=== PATIENT | male | born 1990 | race African-American/Black ===

== ENCOUNTER 2017-10-06 07:36 | Emergency (ER) | payer OTHER ==
[2017-10-06 08:49] LABS: BASO % 0.2 % (0.0-1.0); EOS # 0.1 10^3/uL (0.0-0.50); EOS % 2.5 % (0.0-3.0); HEMATOCRIT 45.3 % (42.0-52.0); HEMOGLOBIN 15.5 g/dl (14.0-18.0); IMMATURE GRANULOCYTE % 0.2 % (0-0); LYMPH # 0.7 10^3/uL (1.5-6.5); LYMPH % 11.7 % (24.0-44.0); MEAN CORPUSCULAR HEMOGLOBIN 29.8 pg (27.0-33.0); MEAN CORPUSCULAR HGB CONC 34.2 g/dl (32.0-36.5); MEAN CORPUSCULAR VOLUME 86.9 fl (80.0-96.0); MONO # 0.4 10^3/uL (0.0-0.8); MONO % 7.4 % (0.0-5.0); NEUTROPHILS # 4.3 10^3/uL (1.8-7.7); PLATELET COUNT, AUTOMATED 154 10^3/uL (150-450); RED BLOOD COUNT 5.21 10^6/uL (4.30-6.10); RED CELL DISTRIBUTION WIDTH 12.6 % (11.5-14.5); WHITE BLOOD COUNT 5.6 10^3/uL (4.0-10.0)
[2017-10-06 08:51] LABS: APPEARANCE, URINE CLEAR (CLEAR); BACTERIA, URINE AUTO NEGATIVE (NEGATIVE); BILIRUBIN, URINE AUTO NEGATIVE (NEGATIVE); BLOOD, URINE BLOOD NEGATIVE (NEGATIVE); COLOR, URINE YELLOW (YELLOW); GLUCOSE, URINE (UA) AUTO NEGATIVE (NEGATIVE); KETONE, URINE AUTO NEGATIVE (NEGATIVE); LEUKOCYTE ESTERASE, URINE AUTO NEGATIVE (NEGATIVE); NITRITE, URINE AUTO NEGATIVE (NEGATIVE); PROTEIN, URINE AUTO NEGATIVE (NEGATIVE); RBC, URINE AUTO 2 /HPF (0-3); SPECIFIC GRAVITY URINE AUTO 1.026 (1.002-1.035); SQUAMOUS EPITHELIAL CELL UR AU 0 /HPF (0-6); UROBILINOGEN, URINE AUTO 0.2 mg/dL (0.0-2.0); WBC, URINE AUTO 1 /HPF (0-3)
[2017-10-06 09:07] LABS: CONTROL LINE MONO INT CTR LINE PRESENT; MONO SCRN NEGATIVE (NEGATIVE)
[2017-10-06 09:14] LABS: ALBUMIN/GLOBULIN RATIO 1.48 (1.00-1.93); ALKALINE PHOSPHATASE 104 U/L (45-117); ALT/SGPT 32 U/L (12-78); ANION GAP 5 MEQ/L (8-16); AST/SGOT 30 U/L (7-37); BILIRUBIN,TOTAL 0.7 MG/DL (0.2-1.0); BLOOD UREA NITROGEN 21 MG/DL (7-18); CALCIUM LEVEL 8.6 MG/DL (8.5-10.1); CARBON DIOXIDE LEVEL 27 MEQ/L (21-32); CHLORIDE LEVEL 109 MEQ/L (98-107); CREATININE FOR GFR 1.19 MG/DL (0.70-1.30); GLOMERULAR FILTRATION RATE > 60.0 (>60); GLUCOSE, FASTING 84 MG/DL (70-105); LIPASE 76 U/L (73-393); POTASSIUM SERUM 4.5 MEQ/L (3.5-5.1); SODIUM LEVEL 141 MEQ/L (136-145); TOTAL PROTEIN 6.7 GM/DL (6.4-8.2)
[2017-10-06] MEDS: MORPHINE 4 MG/ML 1ML SYRINGE IV (09:16)
== END 2017-10-06 10:32 | disposition home or self-care (01) ==
LOC: M ED 07:36
DX: R10.10 Upper abdominal pain, unspecified (principal); R11.2 Nausea with vomiting, unspecified; R19.7 Diarrhea, unspecified
CPT/HCPCS: 76705

== ENCOUNTER 2017-11-25 22:48 | Emergency (ER) | payer OTHER ==
[2017-11-25] MEDS: IBUPROFEN 800 MG TAB PO (23:45)
[2017-11-26] MEDS: AUGMENTIN 875 MG TAB PO (00:01)
== END 2017-11-26 00:04 | disposition home or self-care (01) ==
LOC: M ED 11-26 00:04
DX: J02.0 Streptococcal pharyngitis (principal)
CPT/HCPCS: 87880

== ENCOUNTER 2018-08-29 18:53 | Emergency (ER) | payer OTHER | END 2018-08-29 19:15 | disposition left against medical advice (07) | LOC: M ED 18:53 | DX: Z53.21 Procedure and treatment not carried out due to patient leaving prior to being seen by health care provider (principal) ==

== ENCOUNTER → 2018-12-15 | Outpatient (CLI) | payer OTHER ==
[~2018-12-15] MED LIST: AUGM875T28 PO; PEPT262T2 PO; ZOFR4TAB14 PO
--- NOTE | 2018-12-15 19:49 | REP ---
MRI LEFT SHOULDER: TECHNIQUE: Axial T2 fat sat, gradient echo, sagittal oblique T2 fat sat, coronal oblique T1, T2 fat sat. There is no evidence of a rotator cuff tendon tear. There is some minor supraspinatus tendinopathy. There are not significant hypertrophic changes at the acromioclavicular joint. Acromion is type 2. Biceps tendon is within the bicipital groove. There is no Hill Sach's deformity. The deltoid muscle demonstrates no abnormal signal. Biceps labral complex appears intact. I do not see a definite labral tear. Mild subchondral cystic changes are seen in the superolateral humeral head. There is mild chondromalacia at the glenoid with mild subchondral cystic change posteriorly and inferiorly. Mild fluid in the subacromial subdeltoid bursae may represent mild bursitis. IMPRESSION: Minor supraspinatus tendinopathy. No evidence of rotator cuff tear or labral tear. Acromion is type 2. Subchondral cystic changes superolateral humeral head. Mild chondromalacia of the glenoid with small subchondral cyst posteriorly and inferiorly. Mild fluid in the subacromial subdeltoid bursae may represent mild bursitis. Electronically Signed by Zach Mccarty MD 12/20/2018 09:20 A
== END ==
LOC: M RAD 13:13
PROVIDERS: ATTEND Student in an Organized Health Care Education/Training Program
DX: M25.511 Pain in right shoulder (principal); M94.212 Chondromalacia, left shoulder; M25.812 Other specified joint disorders, left shoulder

== ENCOUNTER 2019-01-18 19:37 | Emergency (ER) | payer OTHER ==
[~2019-01-18] VITALS: Ht 175.3 cm; Wt 79.5 kg
[2019-01-18 19:37] VITALS: BP 90/45
== END 2019-01-18 20:25 | disposition home or self-care (01) ==
LOC: M ED 19:37
DX: S61.002A Unspecified open wound of left thumb without damage to nail, initial encounter (principal); W26.8XXA Contact with other sharp object(s), not elsewhere classified, initial encounter; Y92.018 Other place in single-family (private) house as the place of occurrence of the external cause

== ENCOUNTER 2019-09-11 14:58 | Emergency (ER) | payer OTHER ==
[~2019-09-11] VITALS: Ht 175.3 cm; Wt 74.5 kg
[2019-09-11 14:58] VITALS: BP 142/63
[2019-09-11] MEDS ORDERED: VITA1CAP25 (15:03)
[2019-09-11] MEDS ORDERED: OMEG1CAP4 (15:03)
--- NOTE | 2019-09-11 15:44 | ED PDOC ---
Post-Departure Follow-Up i requested estuardo be brought back to room and [facility] Nikia Farias MD Sep 11, 2019 15:44
== END 2019-09-11 16:10 | disposition left against medical advice (07) ==
LOC: M ED 14:58
DX: Z53.21 Procedure and treatment not carried out due to patient leaving prior to being seen by health care provider (principal)